=== PATIENT | female | born 1985 | race African-American/Black ===

== ENCOUNTER 2016-09-28 11:31 | Emergency (ER) | payer MEDICAID | END 2016-09-28 13:00 | disposition home or self-care (01) | LOC: FASTR 11:31 | DX: S62.663A Nondisplaced fracture of distal phalanx of left middle finger, initial encounter for closed fracture (principal); W00.0XXA Fall on same level due to ice and snow, initial encounter; Y93.01 Activity, walking, marching and hiking; Y92.009 Unspecified place in unspecified non-institutional (private) residence as the place of occurrence of the external cause; I10 Essential (primary) hypertension; F17.210 Nicotine dependence, cigarettes, uncomplicated ==